=== PATIENT | female | born 1970 | race Caucasian/White ===

== ENCOUNTER 2017-02-08 12:13 | Emergency (ER) | payer MEDICAID ==
[~2017-02-08] VITALS: Ht 152.4 cm; Wt 80.0 kg
[2017-02-08 12:26] VITALS: BP 114/80
[2017-02-08] MEDS ORDERED: ALPR-475 PO (12:36)
[2017-02-08] MEDS ORDERED: CITA20TA5 PO (12:36)
[2017-02-08] MEDS ORDERED: PROP10TA PO (12:36)
[2017-02-08 12:40] LABS: DAU SCREEN DISCLAIMER
[2017-02-08 12:52] LABS: HEMATOCRIT 39.8 % (34.6-47.8); HEMOGLOBIN 13.6 g/dL (11.7-16.4); WHITE BLOOD COUNT 7.4 x10^3/uL (3.4-10)
[2017-02-08 13:05] LABS: BLOOD UREA NITROGEN 9 mg/dL (7-18)
[2017-02-08 13:11] LABS: ACETAMINOPHEN < 2 mcg/mL (10-30)
== END 2017-02-08 13:27 | disposition home or self-care (01) ==
LOC: ED 12:36
DX: F43.0 Acute stress reaction (principal); F32.9 Major depressive disorder, single episode, unspecified; F41.9 Anxiety disorder, unspecified
CPT/HCPCS: 36415; 80048; 80307; 80329; 82040; 84703; 85025; 99284; G0479; G0480